=== PATIENT | male | born 1980 | race Caucasian/White ===

== ENCOUNTER 2022-09-25 12:26 | Inpatient (IN) | payer MEDICAID ==
[~2022-09-25] VITALS: Ht 190.5 cm; Wt 94.8 kg
[~2022-09-25 12:26] MED LIST: SERT-158 PO; SERT50TA PO
[2022-09-25 13:36] LABS: GLUCOMETER DEV NAME(LOC) POC.BV
[2022-09-25] MEDS ORDERED: INFLUENZA VIRUS VACCINE QVS 2022-23 (6MO+)/PF 60 MCG/0.5 ML SYRINGE IM. ONE (14:45)
[2022-09-25 15:30] VITALS: BP 131/86
[2022-09-25 20:17] VITALS: BP 128/82
[2022-09-26 07:21] LABS: BASOPHILS % (AUTO) 1.2 % (0.0-2.0); EOSINOPHILS % (AUTO) 6.7 % (1.0-6.0); HEMATOCRIT 40.4 % (41-53); HEMOGLOBIN 13.8 g/dL (13.5-17.5); LYMPHOCYTES # (AUTO) 1.4 K/uL (1.0-4.8); LYMPHOCYTES % (AUTO) 21.3 % (22.0-44.0); MEAN CORPUSCULAR HEMOGLOBIN 30.3 pg (26.0-34.0); MEAN CORPUSCULAR HGB CONC 34.2 G/dL (31.0-37.0); MEAN CORPUSCULAR VOLUME 89 fL (80-100); MONOCYTES # (AUTO) 0.6 K/uL (0.1-1.0); MONOCYTES % (AUTO) 9.1 % (2.0-9.0); NEUTROPHILS % (AUTO) 61.7 % (40.0-70.0); PLATELET COUNT (AUTO) 201 K/uL (150-450); RED BLOOD CELL COUNT(AUTO) 4.55 MIL/uL (4.50-5.90); RED CELL DISTRIBUTION WIDTH 13.3 % (11.5-14.5)
[2022-09-26 07:26] LABS: HEMOGLOBIN A1C 5.3 % (3.8-5.6)
[2022-09-26 07:52] LABS: ALANINE AMINOTRANSFERASE 22 U/L (12-78); ALBUMIN 3.1 g/dL (3.4-5.0); ALKALINE PHOSPHATASE 91 U/L (46-116); ANION GAP 3 mmol/L (8-16); ASPARTATE AMINOTRANSFERASE 13 U/L (15-37); BILIRUBIN,TOTAL 0.6 mg/dL (0.1-1.0); CARBON DIOXIDE 27 mmol/L (22-29); CHLORIDE 105 mmol/L (98-107); CHOL/HDL RATIO 3.2 (4.2-7.3); CHOLESTEROL 111 mg/dL (131-200); CREATININE 1.07 mg/dL (0.60-1.30); FREE T4 (FREE THYROXINE) 0.92 ng/dL (0.76-1.46); GLOMERULAR FILTR. RATE CALC > 60 mL/min (>60); GLUCOSE,RANDOM 90 mg/dL (70-110); HDL CHOLESTEROL 35 mg/dL (40-60); LDL CHOL (CALC.) 52 mg/dL (0-130); POTASSIUM 4.1 mmol/L (3.5-5.1); SODIUM SERUM 135 mmol/L (136-145); TRIGLYCERIDES 121 mg/dL (15-150); UREA NITROGEN, BLOOD 16 mg/dL (7-18)
[2022-09-26 08:34] VITALS: BP 134/74
[2022-09-26] MEDS: OLANZapine 10 MG TABLET PO SCH (11:21)
[2022-09-26] MEDS ORDERED: MAG HYDROX/AL HYDROX/SIMETH ES 30 ML SUSPENSION UDCUP PO PRN (12:15)
[2022-09-26] MEDS ORDERED: ALBUTEROL SULFATE HFA 90 MCG/PUFF 8 GM INHALER IH PRN (12:15)
[2022-09-26] MEDS ORDERED: MAGNESIUM HYDROXIDE SUSPENSION 30 ML UDCUP PO PRN (12:15)
[2022-09-26] MEDS ORDERED: ONDANSETRON HCL 4 MG TABLET PO PRN (12:15)
[2022-09-26] MEDS ORDERED: CloNIDine HCL 0.1 MG TABLET PO PRN (12:15)
[2022-09-26] MEDS ORDERED: GuaiFENesin/D-METHORPHAN [SUGAR-FREE] 200-20MG/10 ML SYRUP UDCUP PO PRN (12:15)
[2022-09-26] MEDS ORDERED: DOCUSATE SODIUM 100 MG CAPSULE PO PRN (12:15)
[2022-09-26] MEDS ORDERED: IBUPROFEN 400 MG TABLET PO PRN (12:15)
[2022-09-26] MEDS ORDERED: NICOTINE 14 MG/24 HOUR PATCH TD PRN (12:15)
[2022-09-26] MEDS ORDERED: LOPERAMIDE HCL 2 MG CAPSULE PO PRN (12:15)
[2022-09-26] MEDS ORDERED: PETROLATUM,WHITE 28 GM JELLY TP PRN (12:15)
[2022-09-26] MEDS ORDERED: ACETAMINOPHEN 325 MG TABLET PO PRN (12:15)
[2022-09-26] MEDS: LORazepam 2 MG TABLET PO PRN (20:06)
[2022-09-26 20:26] VITALS: BP 138/76
[2022-09-27] MEDS: OLANZapine 10 MG TABLET PO SCH (08:59)
[2022-09-27] MEDS: LORazepam 2 MG TABLET PO PRN (12:45)
[2022-09-27 20:20] VITALS: BP 140/78
[2022-09-28] MEDS: ZOLPIDEM TARTRATE 10 MG TABLET PO PRN ×2 (00:10→20:20)
[2022-09-28] MEDS: LORazepam 2 MG TABLET PO PRN ×2 (00:10→08:26)
[2022-09-28] MEDS: OLANZapine 10 MG TABLET PO SCH (08:26)
[2022-09-28 08:36] VITALS: BP 131/85
[2022-09-28 20:30] VITALS: BP 130/78
[2022-09-29 03:59] VITALS: BP 129/86
[2022-09-29] MEDS: LORazepam 2 MG TABLET PO PRN ×3 (04:03→17:31)
[2022-09-29] MEDS: HALOPERIDOL 5 MG TABLET PO PRN ×2 (04:04→17:31)
[2022-09-29 08:19] VITALS: BP 133/73
[2022-09-29] MEDS: OLANZapine 10 MG TABLET PO SCH (08:36)
[2022-09-30] MEDS: OLANZapine 10 MG TABLET PO SCH (08:41)
[2022-09-30] MEDS: LORazepam 2 MG TABLET PO PRN ×2 (08:41→16:55)
[2022-09-30 09:25] VITALS: BP 109/60
[2022-09-30] MEDS: HALOPERIDOL 5 MG TABLET PO PRN (16:55)
[2022-09-30 20:00] VITALS: BP 112/62
[2022-09-30] MEDS: ZOLPIDEM TARTRATE 10 MG TABLET PO PRN (22:22)
[2022-10-01] MEDS: OLANZapine 10 MG TABLET PO SCH (08:19)
[2022-10-01] MEDS: LORazepam 2 MG TABLET PO PRN (08:19)
[2022-10-01 08:31] VITALS: BP 111/64
[2022-10-01] MEDS ORDERED: OLAN10 PO (12:24)
== END 2022-10-01 17:08 | disposition home or self-care (01) | DRG 750 ==
LOC: B3A 14:08
PROVIDERS: ADMIT Psychiatry & Neurology Child & Adolescent Psychiatry; ATTEND Psychiatry & Neurology Child & Adolescent Psychiatry
DX: F25.1 Schizoaffective disorder, depressive type (principal); E87.1 Hypo-osmolality and hyponatremia; N19 Unspecified kidney failure; R45.851 Suicidal ideations; Z20.822 Contact with and (suspected) exposure to COVID-19; F15.10 Other stimulant abuse, uncomplicated; Z59.00 Homelessness unspecified
CPT/HCPCS: 80053; 80061; 83036; 84439; 84443; 85025